=== PATIENT | male | born 1955 | race Caucasian/White ===

== ENCOUNTER → 2016-06-27 | Outpatient (CLI) | payer OTHER ==
[~2016-06-27] MED LIST: ALBU.5I NEB; ASPI1TAB69 PO; ATOR1TAB18 PO; AZAT50 PO; CARV25TA PO; CLON0.2T PO; FURO80TA PO; GLIM2TAB PO; METO5TAB3 PO; SODI-345 PO; TAMS0.4C4 PO; VENTAER INH; VICT18IN SQ; VITA2000 PO
--- NOTE | 2016-06-27 11:18 | RADRPT ---
EXAM DATE/TIME: 06/27/2016 11:09 [place] COMPARISON: CHEST PA & LAT, March 17, 2016, 11:34. INDICATIONS : Short of breath. MEDICAL HISTORY : Chronic obstructive pulmonary disease. SURGICAL HISTORY : lung surgery 2011 ENCOUNTER: Initial ACUITY: >1 year PAIN SCORE: 0/10 LOCATION: Bilateral chest FINDINGS: No infiltrate, effusion or pneumothorax demonstrated. Mild pleural and parenchymal scarring again see n right lung base. There are old right rib fractures. Mild to moderate cardiomegaly and very tortuous thoracic aorta again noted. CONCLUSION: 1. No evidence of acute cardiopulmonary disease. 2. Pleural and proximal scarring at the right lung base. There are old right rib fractures. 3. Mild to moderate cardiomegaly unchanged. 4. Very tortuous thoracic aorta unchanged. Luan Glover MD on June 27, 2016 at 11:15 Board Certified Radiologist. This report was verified electronically.
--- NOTE | 2016-07-11 11:29 | RSPPFT ---
DATE OF PROCEDURE: 06/27/16 COMMENTS: Spirometry demonstrates an FEV1 of 1.6 at 53% of predicted, FVC of 2.0 at 47%, FEF 25-75 at 49% of predicted. Post-bronchodilator study demonstrated no significant change. Lung volumes demonstrated a raised RV/TLC ratio suggesting hyperinflation and air trapping. Diffusion capacity is moderately reduced. Flow volume loops are suggestive of a restrictive pattern. IMPRESSION: 1. Mild to moderate obstructive disease. 2. Additional mild restrictive disease. 3. No significant change following use of bronchodilator. 4. Moderate loss in diffusion capacity.
== END ==
LOC: HRSP 09:52
DX: J44.9 Chronic obstructive pulmonary disease, unspecified (principal)
CPT/HCPCS: 71020; 94060; 94726; 94729